=== PATIENT | female | born 1980 | race Hispanic/Latino ===

== ENCOUNTER 2016-12-30 12:55 | Day surgery (SDC) | payer OTHER ==
[2016-12-30] VITALS (8 sets, daily range): BP systolic 117–138; BP diastolic 60–76; PULSE 93–106; RESP 10–16; O2SAT 98–100
[~2016-12-30] VITALS: Ht 149.9 cm; Wt 58.7 kg
[~2016-12-30 12:55] MED LIST: CeFAZolin Inj 2 GM in IV Premix 1 EACH IV ONE
[2016-12-30] MEDS ORDERED: Dexamethasone 4 mg/mL Inj ONE (12:56)
[2016-12-30] MEDS ORDERED: Ondansetron 2 mg/mL 2 mL Inj ONE (12:56)
[2016-12-30] MEDS ORDERED: MetoCLOpramide 5 mg/mL 2 mL Inj ONE (12:56)
[2016-12-30] MEDS ORDERED: fentaNYL-PF 50 mCg/mL 2 mL Inj ONE (12:56)
[2016-12-30] MEDS ORDERED: EPHEDrine/NS 5 mg/mL 5 mL Syringe ONE (12:56)
[2016-12-30] MEDS ORDERED: Propofol 10,000 mCg/mL 20 mL Inj ONE (12:56)
[2016-12-30] MEDS ORDERED: Lidocaine PF 1% 30 mL Inj ONE (12:56)
[2016-12-30] MEDS ORDERED: CeFAZolin Inj 2 gm / 50mL D5W IV ONE (13:06)
[2016-12-30] MEDS: Lactated Ringer's 1,000 ML IV SCH ×2 (13:16→13:53)
[2016-12-30] MEDS ORDERED: Atropine 0.4 mg/mL Inj IVPUSH PRN (13:30)
[2016-12-30] MEDS ORDERED: HYDROmorphone 1 mg/mL Inj IVPUSH PRN (13:30)
[2016-12-30] MEDS ORDERED: fentaNYL-PF 50 mCg/mL 2 mL Inj IVPUSH PRN (13:30)
[2016-12-30] MEDS ORDERED: Ondansetron 2 mg/mL 2 mL Inj IVPUSH PRN (13:30)
[2016-12-30] MEDS ORDERED: Lactated Ringer's 1,000 ML IV SCH (13:30)
[2016-12-30] MEDS ORDERED: EPHEDrine Sulfate 50 mg/mL Inj IVPUSH PRN (13:30)
[2016-12-30] MEDS ORDERED: Phenylephrine 10,000 mCg/mL Inj IVPUSH PRN (13:30)
[2016-12-30] MEDS ORDERED: Dexamethasone 4 mg/mL Inj IVPUSH PRN (13:30)
[2016-12-30] MEDS ORDERED: hydrALAZINE 20 mg/mL Inj IVPUSH PRN (13:30)
[2016-12-30] MEDS ORDERED: MetoCLOpramide 5 mg/mL 2 mL Inj IVPUSH PRN (13:30)
[2016-12-30] MEDS ORDERED: Labetalol 5 mg/mL 4 mL Inj IV PRN (13:30)
[2016-12-30] MEDS ORDERED: Lactated Ringer's 500 ML IV PRN (13:30)
--- NOTE | 2016-12-30 13:30 | PCM.HPANE ---
Patient Data Date of Service: December 30, 2016 Surgeon Admitting Provider: Attending Provider:Karan Bob MD Primary Care Physician:Messi Mejia MD Other Provider:Marguerite Escalona Anesthesia Reason for Visit Right Axillary Lipomatosis Ht/WT & BMI Height (Feet): 4 Height (Inches): 11 Weight (Kilograms): 58.7 Body Mass Index 26.00 Allergies Coded Allergies: No Known Allergies (Verified , 12/30/16) Past Anesthesia History Anesthesia History: Denies:: Anesthesia Reactions, Malignant Hyperthermia Diabetes History Hx Diabetes?: No MRSA MRSA: No Medications Home Meds Incl Beta Brad: No Discontinued Reported Medications VITS-Expunged Drug, Do Not Renew! ( FORMULA-Expunged Drug, Do Not Renew!)1 Each Tablet1 Each PO DAILY 05/06/13 Discontinued Scripts Docusate Sod-Expunged Drug, Do Not Renew! 10 Mg/1 Ml [id number] Mg PO BID #30 Ref 1 Prov:Messi Mejia MD 05/07/13 oxyCODone/APAP-Expunged, Do Not Renew! (oxyCODone/Apap 5/325mg-Expunged, Do Not Renew) Tablet PO Q3 PRN #20 Ref 0 Prov:Messi Mejia MD 05/07/13 IBUPROFEN-Expunged Drug, Do Not Renew! (Motrin-Expunged Drug, Do Not Renew!)800 Mg [id number] Mg PO Q6 PRN #30 Ref 1 Prov:Messi Mejia MD 05/07/13 History History of ENT Problems?: No HEENT History: Denies:: Abnormal Airway Cataracts Difficult Intubation Dysphagia Glaucoma Hearing Problem Sinus Problem TMJ Denture Type: None Teeth Condition: Within Normal Limits Hx of Heart Problems?: No Cardiovascular History: Denies:: Heart Murmur Hypertension Hx of Respiratory Problem?: No Respiratory History: Denies:: Use of C-PAP Machine Hx Neurologic Problems?: No Hx of GI Problems?: No Hx of Problems?: No Female Hx: Denies:: Currently Skin History: Positive for:: History Skin Disorders? (SKIN IRRITATION FROM CLOTHING RUBBING RT AX MASS) Denies:: Pressure Ulcers Hx Musculoskeletal Problems?: Yes Hx of Psycho/Social Problems?: No Hx Surgeries?: Yes (C/S X3) Hx Any Other Health Problems?: Yes Other History: Denies:: Cancer Endocrine Disease Hospitalization Thyroid Disease History Blood Transfusions: Denies:: Accept Blood Products? (No) Blood Transfusions (SHINTO) Hx Diabetes: No Hx Alcohol Use: Yes (OCCAS)Hx Substance Use: NoHave You Smoked inLast 12 mo: No Stop/Bang Treated for Sleep Apnea?: No Do You Have a CPAP Machine?: No S-Snoring: Do You Snore Loudly: No T-Tired: feel tired, fatigued: No O-Obsered: Observed not breath: No P-Blood Pressure: treated: No B- Body Mass Index > 35 kg/m2: No A- Age over 50: No N- Neck Large Circumference: No G- Gender Male: No SOFIA Total Score: 0 SOFIA Risk Assessment: Low Risk, <3 Yes Risk Assessment Category Category 1A: Patient has history of documented sleep apnea, and HAS NOT received any narcotic, sedative or anesthesia administration during this stay. Category 1B: Patient has history of documented sleep apnea, and HAS received any narcotic , sedative or anesthesia administration during this stay Category 2: Patient has SUSPECTED Obstructive Sleep Apnea, and HAS received any narcotic , sedative or anesthesia administration during this stay. Category 3: Patient has SUSPECTED Obstructive Sleep Apnea and HAS NOT received narcotic, sedative or anesthesia administration during this stay. Category 4: Outpatient in Procedural Areas with known sleep apnea or who screen positive for High Risk via the STOP/BANG questionnaire. Exam Exam Vital Signs Vital Signs Date Time Temp Pulse Resp B/P Pulse Ox O2 Delivery O2 Flow Rate FiO2 12/30/16 13:17 36.6 93 16 138/76 99 Room Air General Appearance: Alert, Oriented X3, Cooperative HEENT/AIRWAY: MP 2, Neck Movement (Full) Lungs: Clear to Auscultation, Normal Air Movement Heart: Regular Rate/Rhythm, Normal S1, Normal S2 Meds/Labs/Diagnostics Admission Meds Current Medications Lactated Ringer's (Lr) 1,000 ml @ 120 mls/hr Q8H20M IV Last administered on t 13:16; Start 12/30/16 at 05:00; Stop 12/30/16 at 13:19; Status DC Labs hcg neg Plan Impression Patient chart reviewed, patient interviewed and anesthestic plan with risks, benefits, and alternatives discussed, and informed consent obtained. NPO per Anesth. Guidelines: Yes ASA Physical Status: ASA1 Normal Healthy Anesthetic Plan: GA Bene/Risks/Altern/Consents: Yes HP Complete Prior to Induction: Yes Billy Rdz MD December 30, 2016 13:30
[2016-12-30] MEDS ORDERED: Bupivacaine-MPF 0.25%/EPI 30 mL Inj INFILTRATE ONE (14:10)
[2016-12-30] MEDS ORDERED: HYDROcodone-APAP 5-325 mg Tablet PO PRN (14:45)
--- NOTE | 2016-12-30 14:47 | PCM.DISURG ---
Surgical Discharge Instruction Date of Service December 30, 2016 Dates of Hospitalization Date of Hospital Admission Providers Admitting Physician: Primary Care Physician: Messi Mejia MD Attending Physician: Karan Bob MD Discharge Diagnosis Discharge Diagnosis Right axillary lipomatosis Diet Discharge Diet: No restrictions Activity Discharge Activity-General: Activity as pain allows Dressing and Incisional Care Dressing Instructions: Dermabond will peel left gradually Hygiene: May shower Follow Up Plan Follow Up Plan In the general surgery [place] postoperative clinic in 2-3 weeks Call your provider for: Fever (over 101.5), Discharge @ incision, pus discharge Karan Bob MD December 30, 2016 14:47
--- NOTE | 2016-12-30 14:51 | PCM.SURGOP ---
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 After discussion risks and benefits, she agreed to proceed with surgical excision and closure. Findings: Normal skin and subcutaneous tissue was excised measuring 9.5 x 4.0 cm. Procedure Details After smooth induction of general anesthesia with an LMA, she was placed in the supine position with the right arm out, and was prepped and draped in wide sterile fashion. A procedural pause was performed according to the SCOAP checklist, and all were found to be in agreement. An elliptical incision was made in the right axilla around the pedunculated focal skin and soft tissue. Dimensions of the incision were 9.5 x 4.0 cm. Dissection was carried through the subcutaneous tissue. The axillary fascia was not violated. Dissection was carried along the lateral border of the pectoralis anteriorly. Skin and subcutaneous tissue was excised and sent for permanent pathology. Hemostasis was adequate. The incision was closed with interrupted deep dermal 3-0 Vicryl suture, and a running 4-0 Vicryl subcuticular stitch. Dermabond was applied to the skin as a dressing. At the end the case all needle and sponge counts were correct 2. The patient was awakened from anesthesia without difficulty, and taken to the recovery room in satisfactory condition, having tolerated the procedure well. Complications There were no periprocedural complications identified. Surgical Specimen Removed: Yes Specimen sent to Pathology: Yes Surgical Specimen description: Right axillary tissue Anesthetic Plan: GA Grafts, Implants: None Output, Estimated Blood Loss: 10 Blood Administration during barrera: No Drains: None Catheters: None copies to: Messi Mejia MD; Talia Lee MD, Joshua D MD December 30, 2016 14:51
--- NOTE | 2016-12-30 15:41 | PCM.ANEP1 ---
Post Anesthesia PACU Phase 1 Assessment Date of Service: December 30, 2016 Vital Signs Vital Signs Date Time Temp Pulse Resp B/P Pulse Ox O2 Delivery O2 Flow Rate FiO2 12/30/16 15:06 36.1 96 15 118/71 98 Room Air 12/30/16 15:00 100 14 126/60 100 Room Air 12/30/16 14:55 36.5 97 15 120/68 99 Room Air 12/30/16 14:50 102 15 121/64 100 Room Air 12/30/16 14:45 106 11 117/63 100 Room Air 12/30/16 14:42 36.0 95 10 128/61 100 Simple Mask 12/30/16 13:17 36.6 93 16 138/76 99 Room Air Anesthetic Administered: GA Level of Alertness: Sleepy, easy to arouse BUTT's with Equal Strength: Yes Pain: No Nausea or Vomiting: No CV Function & Hydration Stable: Yes Airway Device: Oxygen Delivery: Simple Mask Lungs: Normal Air Movement PACU Phase 2 Assessment Complications: No Follow up Care: No Patient Instructions Provided: N/A Billy Rdz MD December 30, 2016 15:41
--- NOTE | 2017-01-04 14:16 | PATH ---
SURGICAL PATHOLOGY Attending Physician:Howard Han CASE STATUS: Signed Out PATIENT NAME: NARAYAN MOON PID: [id number] : 1980 DATE COLLECTED:12/30/2016 23:46 SPECIMEN: Soft Tissue, Lipoma CLINICAL HISTORY: RIGHT AXILLARY LIPOMATOSIS 1). RIGHT AXILLARY TISSUE FINAL DIAGNOSIS: 1.SOFT TISSUE MASS, RIGHT AXILLA: LIPOMA. NO EVIDENCE OF MALIGNANCY. ICD10 D17.9 GROSS DESCRIPTION: The specimen is received in formalin, labeled with the patient's name, sublabeled as right axillary tissue and consists of an ellipse of skin with subcutaneous tissue (7.8 x 4.0 x 2.6 cm). The skin is broussard and unremarkable. The subcutaneous tissue is fatty, yellow and homogenous. No nodules, masses or lesions are identified. Ink code: black-resection margin. Section code: (A-D) ellipse of skin, serially sectioned, accounting representative. 12/31/16 JM MICRO DESCRIPTION: See diagnosis. ICD-9 CODES: CPT CODES: 1: 74570 Electronically Signed Out Tono Mcclure MD [facility] [address], [place] [address] Technical component performed at [facility], [address] [place] [address] Ave[address], [place], [address]
== END 2016-12-30 23:59 | disposition home or self-care (01) ==
LOC: SAS 12:55
PROVIDERS: ATTEND Student in an Organized Health Care Education/Training Program
PROC: 0JBD0ZZ Excision of Right Upper Arm Subcutaneous Tissue and Fascia, Open Approach (ICD-10-PCS; principal; 2016-12-30 14:00)
DX: D17.39 Benign lipomatous neoplasm of skin and subcutaneous tissue of other sites (principal)
CPT/HCPCS: 11406; J0690; J1100; J2250; J2405; J2765; J3010; J7120